=== PATIENT | male | born 1960 | race Two or more races ===

== ENCOUNTER 2023-12-21 12:32 | Outpatient (OUT) | payer MEDICARE, OTHER, SELFPAY | END 2023-12-21 12:33 | disposition home or self-care (01) | LOC: CARD 12:41 | PROVIDERS: PCP Internal Medicine; Visit Provider Internal Medicine | DX: R55 Syncope and collapse (principal) | CPT/HCPCS: 93242 ==

== ENCOUNTER 2024-01-21 09:47 | Outpatient (OUT) | payer MEDICARE, SELFPAY ==
--- NOTE | 2024-01-21 10:03 | CA_ITS ---
Patient Name: BLANCA MORELOS MR#: [id number] : 1960 Exam Date: 01/21/2024 Ordering Doctor: DR MARCIE CHAVEZ M.D. ECHOCARDIOGRAM REPORT PROCEDURE: CA ECHO DOPPLER COMPLETE INDICATIONS: Syncope, Tachy-garland syndrome, Abn EKG COMPARISON: None. DESCRIPTION: COMPLETE ECHOCARDIOGRAM Real-time transthoracic echocardiography with 2D, M-mode, spectral and color flow Doppler performed. QUALITY: Technical quality was good. LEFT VENTRICLE: Normal chamber size. Moderate concentric left ventricular hypertrophy. LV EF: Global left ventricular systolic function is normal. Calculated left ventricular ejection fraction is 67%. No wall motion abnormality seen. DIASTOLIC: Diastolic function is indeterminate. ATRIAL SEPTUM: Lipomatous hypertrophy of the interatrial septum is seen (normal variant). LEFT ATRIUM: Mild dilatation. RIGHT ATRIUM: Mild dilatation. RIGHT VENTRICLE: Normal chamber size. Normal right ventricular systolic function. TRICUSPID VALVE: Normal mobility and thickness. Trivial regurgitation. No evidence of pulmonary hypertension. RVSP 33mmHg MITRAL VALVE: Normal mobility and thickness. No evidence of mitral valve stenosis. There is no mitral annular calcification. Mild mitral regurgitation. AORTIC VALVE: Normal trileaflet appearance. Moderate, nodular calcification. Normal leaflet mobility. No evidence of aortic valve stenosis. No aortic regurgitation. AORTIC ROOT: Normal diameter and appearance. PULMONIC VALVE: Normal thickness and mobility. No stenosis. Trivial regurgitation. PERICARDIUM: Anterior free space; trivial effusion versus fat pad. IVC: Collapses with inspirations. Mild dilatation measuring 2.3cm. CONCLUSION: 1. Global left ventricular systolic function is normal; visually estimated ejection fraction is 60 to 65% 2. Normal right ventricular size and systolic function 3. Moderate left ventricular hypertrophy 4. Diastolic function is indeterminate 5. Biatrial enlargement 6. Mild mitral regurgitation 7. Anterior free space; trivial effusion versus fat pad Adult Echocardiography Procedure Report Left Ventricle LVEDD (3.7 - 5.6 cm): 4.50 cm LVESD (2.2 - 4.0 cm): 3.06 cm LVIVS thickness (0.6 - 1.2 cm): 1.35 cm LVPW thickness (0.5 - 1.0 cm): 1.37 cm e': 0.06 m/s E - e': 12.06 LVOT Max Gradient: 3.70 mm[Hg] LVOT Area (cm2): 0.96 m/s Peak Velocity (LVOT): 0.96 m/s Mean Velocity (LVOT): 0.65 m/s LVOT Diameter 2.18 cm Left Ventricular Ejection Fraction: 66.78 % Left Atrium LA Volume Index (2D A2C): 37.67 ml/m2 Left Atrium Systolic Dimension: 3.99 cm Mitral Valve MV E to A Ratio: 1.16 Mitral Valve A-Wave Peak Velocity: 0.64 m/s Mitral Valve E-Wave Peak Velocity: 0.74 m/s Right Ventricle RV Internal Diastolic Dimension: 4.03 cm Aorta AO Root Diam: 3.40 cm Ascending Ao Diam: 3.11 cm Aortic Valve AoV Area (Peak Cristóbal): 2.94 cm2, 2.94 cm2 AoV Area (VTI): 2.49 cm2, 2.49 cm2 Peak Velocity(Antegrade Flow): 1.22 m/s Peak Gradient(Antegrade Flow): 5.99 mm[Hg] Mean Velocity(Antegrade Flow): 0.85 m/s Mean Gradient(Antegrade Flow): 3.33 mm[Hg] Velocity Time Integral: 29.22 cm Tricuspid Valve Peak Velocity (Regurgitant Flow): 1.99 m/s, 2.27 m/s, 2.52 m/s Pulmonic Valve Mean Gradient: 2.28 mm[Hg] Mean Velocity: 0.71 m/s Peak Velocity: 1.02 m/s, 0.94 m/s Peak Gradient: 4.13 mm[Hg], 3.56 mm[Hg] Right Atrium Right Atrium Systolic Pressure: 121.14 ml, 121.14 ml Dictated by: Choco Jaime M.D. on 01/21/2024 at 12:29 Approved by: Choco Jaime M.D. on 01/21/2024 at 12:34
== END 2024-01-21 09:48 | disposition home or self-care (01) ==
PROVIDERS: PCP Internal Medicine; Visit Provider Internal Medicine
DX: R55 Syncope and collapse (principal); I49.5 Sick sinus syndrome; R94.31 Abnormal electrocardiogram [ECG] [EKG]
CPT/HCPCS: 93306